=== PATIENT | female | born 2000 | race American Indian/Alaskan Native ===

== ENCOUNTER 2019-03-07 02:52 | Emergency (ER) | payer SELFPAY ==
[2019-03-07] MEDS ORDERED: PYRIDIUM PO ONE (03:48)
[2019-03-07] MEDS ORDERED: ROCEPHIN IM ONE (03:48)
[2019-03-07] MEDS ORDERED: TYLENOL PO ONE (03:48)
[2019-03-07] MEDS ORDERED: ZITHROMAX PO ONE (03:48)
[2019-03-07] MEDS ORDERED: ZOFRAN ODT PO ONE (03:48)
[2019-03-07] MEDS ORDERED: XYLOCAINE 1% MPF 5 mL INFILTRATI ONE (03:48)
[2019-03-07 04:05] LABS: Bilirubin,Urine NEG (Negative); Blood,Urine LG (Negative); Color,Urine Yellow (Yellow); Urobilinogen,Urine < 2.0 mg/dL (<2.0); WBC,Urine > 182.0 /HPF (0.0-6.0)
[2019-03-07 04:14] LABS: HCG Qualitative,Urine Negative (Negative)
--- NOTE | 2019-03-07 05:24 | Emergency Department Report ---
ED Female HPI - General Chief complaint: Urogenital-Female Stated complaint: PAINFUL URINATION,BLOOD IN URINE Time Seen by Provider: 03/07/19 03:30 Source: patient Mode of arrival: Ambulatory Limitations: No Limitations - History of Present Illness Initial comments: Patient is a nulliparous 18-year-old -[place] female with a medical history presents with the ED with, and of acute onset persistent severe dysuria, hematuria, vaginal discharge, suprapubic pressure and low back pain for the last 1 week, worse in the last 2 days. Patient admits to having multiple sexual partners with no contraception or protection. Patient denies fever, chills, nausea, vomiting, diarrhea, dizziness, abdominal pain, cough, sore throat, dyspareunia, vaginal bleeding or shortness of breath or chest pain MD Complaint: vaginal discharge, dysuria, pelvic pain, possible STD -: Sudden, week(s) (1) Location: suprapubic, other (vaginal) Radiation: non-radiating Severity: severe Severity scale (0 -10): 7 Quality: cramping, sharp, burning, aching Consistency: constant Improves with: none Worsens with: urination Are you Now?: No (None) Last Menstrual Period: 02/28/19 EDC: 12/05/19 Associated Symptoms: denies other symptoms, vaginal discharge, dysuria, hematuria. denies: vaginal bleeding, abdominal pain, nausea/vomiting, fever/chills, headaches, loss of appetite, rash, seizure, shortness of breath, syncope, weakness, other - Related Data Sexually active: Yes (with multiple partners) : 0 Para: 0 A: 0 Previous Rx's Medication Instructions Recorded Last Taken Type Doxycycline Hyclate [Doxycycline 100 mg PO Q12HR #20 tab 03/07/19 Unknown Rx Hyclate TAB] Fluconazole [Diflucan TAB] 150 mg PO ONCE #1 tablet 03/07/19 Unknown Rx Ibuprofen [Motrin] 600 mg PO Q8H PRN #20 tablet 03/07/19 Unknown Rx Ondansetron [Zofran Odt] 4 mg PO Q6HR PRN #15 tab.rapdis 03/07/19 Unknown Rx Phenazopyridine [Pyridium] 200 mg PO Q8H #21 tab 03/07/19 Unknown Rx Sulfamethoxazole/Trimethoprim 1 each PO Q12H #20 tablet 03/07/19 Unknown Rx [Bactrim DS TAB] metroNIDAZOLE [Flagyl] 500 mg PO Q12HR #20 tab 03/07/19 Unknown Rx Allergies Allergy/AdvReac Type Severity Reaction Status Date / Time No Known Allergies Allergy Unverified 03/07/19 03:13 ED Review of Systems ROS: Stated complaint: PAINFUL URINATION,BLOOD IN URINE Other details as noted in HPI Constitutional: denies: chills, fever Eyes: denies: eye pain, eye discharge, vision change ENT: denies: ear pain, throat pain Respiratory: denies: cough, shortness of breath, wheezing Cardiovascular: denies: chest pain, palpitations Endocrine: no symptoms reported Gastrointestinal: abdominal pain (suprapubic pressure). denies: nausea, vomiting, diarrhea, constipation, hematemesis Genitourinary: urgency, dysuria, hematuria, discharge Musculoskeletal: back pain, myalgia. denies: joint swelling, arthralgia Skin: denies: rash, lesions Neurological: denies: headache, weakness, paresthesias Psychiatric: denies: anxiety, depression Hematological/Lymphatic: denies: easy bleeding, easy bruising ED Past Medical Hx - Past Medical History Previous Medical History?: Yes Hx Asthma: Yes - Surgical History Past Surgical History?: No - Social History Smoking Status: Never Smoker Substance Use Type: Alcohol, Marijuana - Medications Home Medications: Home Medications Medication Instructions Recorded Confirmed Last Taken Type Doxycycline Hyclate [Doxycycline 100 mg PO Q12HR #20 tab 03/07/19 Unknown Rx Hyclate TAB] Fluconazole [Diflucan TAB] 150 mg PO ONCE #1 tablet 03/07/19 Unknown Rx Ibuprofen [Motrin] 600 mg PO Q8H PRN #20 tablet 03/07/19 Unknown Rx Ondansetron [Zofran Odt] 4 mg PO Q6HR PRN #15 tab.rapdis 03/07/19 Unknown Rx Phenazopyridine [Pyridium] 200 mg PO Q8H #21 tab 03/07/19 Unknown Rx Sulfamethoxazole/Trimethoprim 1 each PO Q12H #20 tablet 03/07/19 Unknown Rx [Bactrim DS TAB] metroNIDAZOLE [Flagyl] 500 mg PO Q12HR #20 tab 03/07/19 Unknown Rx ED Physical Exam - General Limitations: No Limitations General appearance: alert, in no apparent distress - Head Head exam: Present: atraumatic, normocephalic, normal inspection - Eye Eye exam: Present: normal appearance, PERRL, EOMI Pupils: Present: normal accommodation - ENT ENT exam: Present: normal exam, normal orophraynx, mucous membranes moist, TM's normal bilaterally, normal external ear exam - Neck Neck exam: Present: normal inspection, full ROM. Absent: tenderness, lymphadenopathy - Respiratory Respiratory exam: Present: normal lung sounds bilaterally. Absent: respiratory distress, wheezes, rales, chest wall tenderness, prolonged expiratory - Cardiovascular Cardiovascular Exam: Present: regular rate, normal rhythm, normal heart sounds. Absent: bradycardia, systolic murmur, diastolic murmur, rubs, gallop - GI/Abdominal GI/Abdominal exam: Present: soft, normal bowel sounds. Absent: distended, tenderness, guarding, rebound, hyperactive bowel sounds, hypoactive bowel sounds, organomegaly - Rectal Rectal exam: Present: deferred - Bi-manual exam: Present: other (deferred, patient declined) - Extremities Exam Extremities exam: Present: normal inspection, full ROM, normal capillary refill - Back Exam Back exam: Present: normal inspection, full ROM. Absent: tenderness, CVA tenderness (L), muscle spasm, paraspinal tenderness, vertebral tenderness - Neurological Exam Neurological exam: Present: alert, oriented X3, CN II-XII intact, normal gait, reflexes normal - Psychiatric Psychiatric exam: Present: normal affect, normal mood - Skin Skin exam: Present: warm, dry, intact, normal color. Absent: rash ED Course Vital Signs 03/07/19 03/07/19 02:59 04:23 Temperature 98.3 F Pulse Rate 95 H Respiratory 18 20 Rate Blood Pressure 118/81 O2 Sat by Pulse 99 Oximetry - Reevaluation(s) Reevaluation #1: 03/07/19 05:22 This is a 18-year-old nulliparous female presented to the ED with dysuria, hematuria, urinary frequency and urgency and low back pain for one week. In the ED, patient is alert and oriented 3 and is in distress. Urinalysis shows significant urinary tract infection. Patient was treated in the ED empirically for urinary tract infection and Chlamydia and gonorrhea given the risk factors for the same. Patient was discharged home on antibiotics and pain medications and advised to follow-up with [facility] physician in 7-10 days for reevaluation. Patient was also advised to follow-up at the [facility] for other STD tests. Patient was advised to return to the ED immediately if symptoms get worse. Patient was also advised on safe sex practices and verbalized understanding. ED Medical Decision Making - Medical Decision Making This is a 18-year-old nulliparous female presented to the ED with dysuria, hematuria, urinary frequency and urgency and low back pain for one week. In the ED, patient is alert and oriented 3 and is in distress. Urinalysis shows significant urinary tract infection. Patient was treated in the ED empirically for urinary tract infection and Chlamydia and gonorrhea given the risk factors for the same. Patient was discharged home on antibiotics and pain medications and advised to follow-up with [facility] physician in 7-10 days for reevaluation. Patient was also advised to follow-up at the [facility] for other STD tests. Patient was advised to return to the ED immediately if s ymptoms get worse. Patient was also advised on safe sex practices and verbalized understanding - Differential Diagnosis acute UTI; STD, PID; Dysmenorrhea Critical care attestation.: If time is entered above; I have spent that time in minutes in the direct care of this critically ill patient, excluding procedure time. ED Disposition Clinical Impression: Acute urinary tract infection, STD (sexually transmitted disease), Dysuria Disposition: - TO HOME OR SELFCARE Is pt being admited?: No Does the pt Need Aspirin: No Condition: Stable Instructions: Dysuria (ED), Urinary Tract Infection in Women (ED), Acute Hematuria (ED), Sexually Transmitted Diseases (ED), Safe Sex (ED) Additional Instructions: Take medications with food, drink plenty of fluids and follow up with your primary care physician or [facility] physician in 7-10 days for reevaluation. Consider following up with a [facility] Department for further tests on STDs. Practice safe sexual practices. Return to the ED immediately if symptoms get worse. Prescriptions: Sulfamethoxazole/Trimethoprim [Bactrim DS TAB] 1 each PO Q12H #20 tablet Fluconazole [Diflucan TAB] 150 mg PO ONCE #1 tablet Doxycycline Hyclate [Doxycycline Hyclate TAB] 100 mg PO Q12HR #20 tab metroNIDAZOLE [Flagyl] 500 mg PO Q12HR #20 tab Ibuprofen [Motrin] 600 mg PO Q8H PRN #20 tablet PRN Reason: Pain Phenazopyridine [Pyridium] 200 mg PO Q8H #21 tab Ondansetron [Zofran Odt] 4 mg PO Q6HR PRN #15 tab.rapdis PRN Reason: Nausea Referrals: [facility] [Outside] - 3-5 Days [facility] [Outside] - 3-5 Days Time of Disposition: 05:26 Print Language: ICELANDIC
[2019-03-07 05:56] VITALS: BP 115/70
== END 2019-03-07 05:45 | disposition home or self-care (01) ==
LOC: ED 02:52
DX: N39.0 Urinary tract infection, site not specified (principal); A64 Unspecified sexually transmitted disease; J45.909 Unspecified asthma, uncomplicated; F12.10 Cannabis abuse, uncomplicated; Z79.899 Other long term (current) drug therapy
CPT/HCPCS: 81001; 81025; 96372; 99283; J0696; Q0162